=== PATIENT | male | born 2000 | race Caucasian/White ===

== ENCOUNTER 2019-01-26 17:37 | Emergency (ER) | payer OTHER ==
[2019-01-26] MEDS ORDERED: IBUPROFEN 600 MG TABLET PO STA (18:12)
--- NOTE | 2019-01-26 18:13 | ED Physician Documentation ---
PD HPI LOWER EXT INJURY - Stated complaint Stated Complaint: RT ANKLE INJ - Chief complaint Chief Complaint: Trauma Ext - History obtained from History obtained from: Patient - History of Present Illness PD HPI LOW EXT INJURY LOCATION: Right Type of injury: Fall, Twist Timing - onset: How many hours ago (2) Timing - duration: Hours (2) Timing - details: Abrupt onset Worsened by: Moving, Palpating Associated symptoms: Swelling. No: Weakness, Numbness, Tingling, Discolored Similar symptoms before: Has not had sx before Recently seen: Not recently seen - Additional information Additional information: This is a 18-year-old who was playing basketball tonight when he was jumping up for rebound came down and landed on someone's foot and suffered an inversion injury to the right ankle. He did fall to the ground. Did not hit his head or pass out denies knee pain or numbness or tingling into the foot. He is been able to limp on the leg since this happened. Is not taken any medications for the pain. He has sprained this ankle in the past but did not require any surgery. Patient is in the [place] Review of Systems Musculoskeletal: reports: Extremity pain, Joint pain, Extremity swelling Neurologic: denies: Head injury, LOC PD PAST MEDICAL HISTORY - Past Medical History Past Medical History: No - Past Surgical History Past Surgical History: No HEENT: Tonsil/Adenoidectomy - Allergies Allergies/Adverse Reactions: Allergies Allergy/AdvReac Type Severity Reaction Status Date / Time No Known Drug Allergies Allergy Verified 01/26/19 17:50 - Social History Does the pt smoke?: No Smoking Status: Never smoker Does the pt drink ETOH?: No Does the pt have substance abuse?: No - Immunizations Immunizations are current?: Yes - POLST Patient has POLST: No PD ED PE NORMAL - Vitals Vital signs reviewed: Yes - General General: Alert and oriented X 3, No acute distress, Well developed/nourished - HEENT HEENT: Atraumatic - Cardiac Cardiac: RRR - Respiratory Respiratory: No respiratory distress - Extremities Extremities: Other (There is swelling to the right lateral malleolus. Tender to palpation at the lat malleolus. Is a 2+ dorsalis pedis pulse he is able to wiggle his toes and sensation is intact to light touch.) - Neuro Neuro: Alert and oriented X 3, No motor deficit, No sensory deficit, Normal speech Results - Vitals Vitals: Vital Signs - 24 hr 01/26/19 01/26/19 17:50 18:05 Temperature 36.5 C 36.5 C Heart Rate 69 69 Respiratory 16 16 Rate Blood Pressure 135/69 H 135/69 H O2 Saturation 97 97 Oxygen O2 Source Room air - Rads (name of study) r ankle Radiology: EMP read indepedently (Neg fracture), EMP read contemporaneously PD MEDICAL DECISION MAKING - ED course Complexity details: reviewed results, d/w patient ED course: X-ray does not show an acute fracture. There is some soft tissue swelling. The results were discussed with the patient. He has had a little bit of relief with the ibuprofen. Recommended that he ice and elevate this and be nonweightbearing in an air splint. [place] Departure - Departure Disposition: 01 Home, Self Care Clinical Impression: Sprain of ankle, right Qualifiers: Encounter type: initial encounter Involved ligament of ankle: unspecified ligament Qualified Code(s): S93.401A - Sprain of unspecified ligament of right ankle, initial encounter Condition: Good Instructions: ED Sprain Ankle W X Ray Follow-Up: [facility] [Provider Group] Comments: Elevate and ice the right ankle. Use the air splint for 2 weeks and I would recommend nonweightbearing for the next 4 to 5 days with crutches. Take ibuprofen [id number] up to 4 tablets every 8 hours with food or Tylenol for the pain. [place]
--- NOTE | 2019-01-26 19:00 | XRAY Report ---
Reason: pain; inversion injury Procedure Date: 01/26/2019 Accession Number: [id number] / [id number] Procedure: XR - Ankle 3 View RT CPT Code: FULL RESULT: EXAM: RIGHT ANKLE RADIOGRAPHY. EXAM DATE: 01/26/2019 06:26 PM. CLINICAL HISTORY: Pain; inversion injury. COMPARISON: None. TECHNIQUE: 3 views. FINDINGS: Bones: Normal. No fractures or bone lesions. Joints: Normal. No effusion. No subluxations. The ankle mortise is normally aligned. Soft Tissues: Lateral soft tissue swelling. IMPRESSION: No fracture or disruption of the ankle mortise. RADIA
[2019-01-26 19:04] VITALS: BP 137/74
== END 2019-01-26 19:03 | disposition home or self-care (01) ==
LOC: ED 17:37
DX: S93.401A Sprain of unspecified ligament of right ankle, initial encounter (principal); X50.1XXA Overexertion from prolonged static or awkward postures, initial encounter; Y93.67 Activity, basketball
CPT/HCPCS: 73610; 99282; 99283; A9270

== ENCOUNTER 2023-03-16 15:51 | Emergency (ER) | payer OTHER ==
[2023-03-16 16:01] VITALS: BP 148/89; O2SAT 98
--- NOTE | 2023-03-16 16:34 | ED Physician Documentation ---
PD HPI BACK PAIN - Stated complaint Stated Complaint: LOWER BACK PX - Chief complaint Chief Complaint: Back Pain - History obtained from History obtained from: Patient - History of Present Illness Timing - duration: Months (he has had lump under skin left lower thoracic area for months that is tender at times.) Timing - details: Gradual onset, Waxing and waning (tender at times.) Location: Mid, Left Quality: Aching Worsened by: Palpation Contributing factors: No: Trauma Recently seen: Not recently seen Review of Systems Skin: denies: Rash, Lesions, Abrasion (s) PD PAST MEDICAL HISTORY - Past Medical History Respiratory: None Endocrine/Autoimmune: None - Past Surgical History Past Surgical History: No HEENT: Tonsil/Adenoidectomy - Allergies Allergies/Adverse Reactions: Allergies Allergy/AdvReac Type Severity Reaction Status Date / Time No Known Drug Allergies Allergy Verified 03/16/23 15:54 - Social History Does the pt smoke?: No Smoking Status: Never smoker Does the pt drink ETOH?: No Does the pt have substance abuse?: No - Immunizations Immunizations are current?: Yes - POLST Patient has POLST: No PD ED PE NORMAL - Vitals Vital signs reviewed: Yes - General General: Alert and oriented X 3, No acute distress, Well developed/nourished - Back Back: No spinal TTP, Other (there is a firm, moveable, subcut 2-3 cm lump left lower thoracic back. No redness nor sores. Bedside US showing fatty tissue without glandular nor fluid (not cyst nor node). ) - Derm Derm: Normal color, Warm and dry Results - Vitals Vitals: Oxygen O2 Source Room air PD Medical Decision Making - ED course Complexity details: reviewed results (It feels like a lipoma. I presume it rubs/gets irritated when he is doing activity or working out (like lying on back with bench presses). Refer to Derm if he would like it removed. ), considered differential (he has had a lump feeling under skin for awhile and it is tender at times. Has been tender couple of days now. ), d/w patient Departure - Departure Disposition: 01 Home, Self Care Clinical Impression: Lipoma, Soft tissue injury of back Condition: Stable Record reviewed to determine appropriate education?: Yes Instructions: ED Lipoma Follow-Up: [facility] [Provider Group] [facility] [Provider Group] Comments: This has the look and feel of a fatty soft tissue thickening called a lipoma. It often originates as a response to a local injury and then will stay a lump and firm. At times it can get tender if irritated. It may be getting irritated during your workouts, in particular if you are laying on a flat surface such as bench pressing. Try to put a towel or something padded on your back when you are doing those. Otherwise you can gently massage the area daily and sometimes it will soften it over a few weeks. Ibuprofen if needed for pains. If you find it consistently tender or bothering you, it can get removed by simple excision. This is commonly done by exterior door installer or surgeon in the office etc. It does not need to get removed if it does not bother you consistently. Discharge Date/Time: 03/16/23 17:11
== END 2023-03-16 17:11 | disposition home or self-care (01) ==
LOC: ED 15:51
DX: D17.1 Benign lipomatous neoplasm of skin and subcutaneous tissue of trunk (principal)
CPT/HCPCS: 99282; 99283